=== PATIENT | male | born 1995 | race Caucasian/White ===

== ENCOUNTER 2020-01-14 18:12 | Emergency (ER) | payer OTHER, SELFPAY ==
--- NOTE | ~2020-01-14 | XR_ITS ---
XR finger 1st LT min 2V DATE: 01/14/2020 19:19 INDICATION: Smashing injury. Left thumb pain. TECHNIQUE: 3 views of first digit COMPARISON: None FINDINGS: The tuft of the distal phalanx a shattered, with multiple fracture fragments. Normal alignment at the thumb. No other fracture or any dislocation. IMPRESSION: Comminuted fracture of tuft of distal phalanx Reviewed, dictated and finalized at location A.
[2020-01-14 18:20] VITALS: BP 156/96; PULSE 67; RESP 16; TEMP 37; O2SAT 99
--- NOTE | 2020-01-14 18:40 | ED.UPPEXIN ---
HPI - Extremity Injury (Upper) General Chief Complaint: Extremity Injury, Upper Stated Complaint: smashed thumb Source: patient Mode of arrival: ambulatory Limitations: no limitations History of Present Illness HPI narrative: patient is a 24-year-old male who presents to the emergency department after injury to his thumb. Patient states that about 7:00 a.m. this morning hammer hit his thumb. he states it is throbbing at this time. He wrapped it up this morning and a Band-Aid however the thumb is quite dirty still has he does work in welding. He states there is also a splint at the top of his fingernail where it was bleeding as well, however this bleeding is stopped. Onset (ago): hour(s) ( Almost 12 hours ago) Place: home Severity: mild Context: direct blow ( he hit his thumb with a hammer) Related Data Allergies Allergy/AdvReac Type Severity Reaction Status Date / Time Penicillins Allergy Unknown Verified 01/14/20 18:25 Review of Systems Review of Systems: All systems reviewed & are unremarkable except as noted in HPI and below Musculoskeletal: Comments: thumb injury only PMFSH Social History Social History (Updated 01/14/20 @ 18:44 by Imelda Webb MD) Substance use: never Living arrangements: with family Occupation/Education: occupation Exam Const: General: no acute distress and alert Nutritional Appearance: well nourished Orientation/consciousness: patient oriented x3 HENMT: Head: normal to inspection Neck: Neck: normal visual inspection Chest: Chest palpation & inspection: normal inspection of the chest Resp: Effort & Inspection: normal respiratory effort Skin: Other: small 1 cm laceration does have some bleeding present, small subungual fungal hematoma which look like it has mostly drained through the opening in the superior aspect of the nail. Neuro: General: patient oriented x3 and moves all extremities Psych: Mental Status: mental status grossly normal Affect: normal affect Course Course Emergency Course: sutures place to approximate wound, still left loose for drainage Vital Signs Vital signs: Vital Signs Temperature 37.0 C 01/14/20 18:20 Pulse Rate 67 01/14/20 18:20 Respiratory Rate 16 01/14/20 18:20 Blood Pressure 156/96 H 01/14/20 18:20 Pulse Oximetry 99 01/14/20 18:20 Temperature 37.0 C 01/14/20 18:20 Pulse Rate 67 01/14/20 18:20 Respiratory Rate 16 01/14/20 18:20 Blood Pressure 156/96 H 01/14/20 18:20 Pulse Oximetry 99 01/14/20 18:20 Procedures Laceration Laceration 1: Date: 01/14/20 Time: 19:52 Site: hand Side (If applicable): left Size (cm): 2 Description: linear Depth: simple, single layer Local Anesthetic: lidocaine 1% Amount of anesthesia used (mL): 2 Pre-repair: wound explored ====== Skin Level ====== Skin layer closed with: nylon Size (cm): 4-0 Number of sutures: 2 Technique: simple, interrupted ====== Subcutaneous Layer ====== ====== Muscle Layer ====== ====== Tendon Layer ====== Dressing: metal foam splint Discharge Plan Discharge Clinical Impression: Closed fracture of tuft of distal phalanx of finger, Laceration Patient Disposition: Home, Self-Care Condition: Stable Instructions: Antibiotic Form, Care For Your Stitches (ED), Laceration (ED), Finger Fracture (ED) Prescriptions: New sulfamethoxazole-trimethoprim [Bactrim DS] 800-160 mg tablet 1 tablet PO Q12H Qty: 20 RF: 0 Follow-up/Referrals: Pooja Briceño MD [Primary Care Provider] - Time of Disposition: 19:56
[2020-01-14] MEDS: LIDOCAINE HCL 1% LOCAL INJ 20 ML VIAL (19:29)
--- NOTE | 2020-01-14 19:30 | PC.NURSE ---
PT IS UP TO DATE WITH TETANUS VACCINE. 2016. ERP AWARE.
[2020-01-14 20:04] VITALS: RESP 15; O2SAT 100
== END 2020-01-14 20:05 | disposition home or self-care (01) ==
PROVIDERS: Emergency Provider Emergency Medicine; PCP Internal Medicine
DX: S62.522A Displaced fracture of distal phalanx of left thumb, initial encounter for closed fracture (principal); W27.8XXA Contact with other nonpowered hand tool, initial encounter; S61.012A Laceration without foreign body of left thumb without damage to nail, initial encounter
CPT/HCPCS: 12001; 73140; 99283; 99284

== ENCOUNTER 2021-01-24 20:00 | Emergency (ER) | payer OTHER, SELFPAY ==
[2021-01-24 21:30] VITALS: BP 134/90; PULSE 98; RESP 18; TEMP 36.6; O2SAT 98
[2021-01-24] MEDS: LIDOCAINE HCL 2% PF INJ 5 ML VIAL 3 ML INFILTRATE (22:05)
[2021-01-24] MEDS: IBUPROFEN 400 MG TABLET 800 MG PO (22:18)
[2021-01-24] MEDS: TETANUS,DIPHTHERIA,AC PERTUSSIS ADULT 0.5 ML (ADACEL) IM (22:20)
--- NOTE | 2021-01-24 22:29 | ED.WOUNDLAC ---
HPI - Wound/Laceration General Chief Complaint: Wound/Laceration Stated Complaint: Right arm injury Time Seen by Provider: 01/24/21 20:30 Source: patient and RN notes reviewed Mode of arrival: ambulatory Limitations: no limitations History of Present Illness HPI narrative: 7 cm gaping linear laceration of medial right dital forearm, no acute bleeding. Onset (ago): hour(s) (1) Extremity Location: Right: forearm Place: home Patient tetanus UTD: No Context: accidental Associated symptoms: none Treatments prior to arrival: bandage Related Data Allergies Allergy/AdvReac Type Severity Reaction Status Date / Time Penicillins Allergy Unknown Verified 01/14/20 18:25 Review of Systems Review of Systems: All systems reviewed & are unremarkable except as noted in HPI and below Musculoskeletal: Musculoskeletal: Reports as per HPI (right forearm laceration.) [facility] Past Medical History Medical History Forearm laceration Social History Social History Substance use: never Exam Const: General: no acute distress and alert Orientation/consciousness: patient oriented x3 Limitations: no limitations HENMT: Head: normal to inspection Ears: external ears normal and TM's normal bilaterally General nose exam: Normal external nose present and Normal nares present Mouth: Yes lip normal and Yes moist mucous membranes Teeth and gingiva: dentition normal Eyes: Conjunctivae: conjunctivae normal Pupils: Equal, round and reactive pupils present EOM: EOMs intact bilaterally Neck: Neck: normal visual inspection and no lymphadenopathy Chest: Chest palpation & inspection: normal inspection of the chest Resp: Effort & Inspection: normal respiratory effort Auscultation: clear to auscultation bilaterally Cardio: Rate: regular rate Rhythm: regular rhythm GI: GI Palp: Yes Soft to palpation (no acute tenderness) Percussion: Yes normal to percussion Back/Spine/Pelvis: Back: no CVA tenderness Skin: General skin exam: normal color Rashes: no rashes Neuro: General: patient oriented x3, moves all extremities, no meningeal signs, no focal motor deficits and CN's II-XI intact bilaterally Extrem: Other: 7 cm linear gaping laceration og the medial right forearm. Psych: Appearance: grossly normal and well kempt Mental Status: mental status grossly normal Affect: normal affect Attitude: cooperative Thought content: Yes Normal thought content present Course Course Emergency Course: Pt was table and less pain-ful in the ED. the right forearm lac was repaired, pt for home. Reevaluation(s) Date: 01/24/21 Time: 21:46 Vital Signs Vital signs: Vital Signs Temperature 36.6 C 01/24/21 21:30 Pulse Rate 98 01/24/21 21:30 Respiratory Rate 18 01/24/21 21:30 Blood Pressure 134/90 01/24/21 21:30 Pulse Oximetry 98 01/24/21 21:30 Temperature 36.6 C 01/24/21 22:37 Pulse Rate 80 01/24/21 22:37 Respiratory Rate 20 01/24/21 22:37 Blood Pressure 130/88 01/24/21 22:37 Pulse Oximetry 94 01/24/21 22:37 Procedures Laceration right forearm laceration : Date: 01/24/21 Time: 22:03 Site: upper extremity Side (If applicable): right Size (cm): 7 Description: linear and clean Depth: simple, single layer Local Anesthetic: lidocaine 2% Amount of anesthesia used (mL): 4 Pre-repair: wound explored and irrigated extensively ====== Skin Level ====== Skin layer closed with: nylon Size (cm): 3-0 Number of sutures: 7 Technique: simple, interrupted ====== Subcutaneous Layer ====== ====== Muscle Layer ====== ====== Tendon Layer ====== Dressing: mild compression dressing applied . well tolerated MDM - Wound/Laceration Differential Diagnosis Differential diagnosis: Likely laceration, abrasion and
[2021-01-24 22:37] VITALS: BP 130/88; PULSE 80; RESP 20; TEMP 36.6; O2SAT 94
== END 2021-01-24 22:44 | disposition home or self-care (01) ==
PROVIDERS: Emergency Provider Emergency Medicine; PCP Internal Medicine
DX: S51.811A Laceration without foreign body of right forearm, initial encounter (principal); W45.8XXA Other foreign body or object entering through skin, initial encounter
CPT/HCPCS: 12002; 90471; 90715; 99283; A9270

== ENCOUNTER 2021-02-27 17:04 | Emergency (ER) | payer OTHER, SELFPAY ==
--- NOTE | ~2021-02-27 | XR_ITS ---
EXAMINATION: XR knee LT min 4V DATE: 02/27/2021 17:59 INDICATION: Left knee injury. TECHNIQUE: 5 views of left knee were obtained. COMPARISON: None. FINDINGS: Bone alignment is normal. No fracture. Joint spaces are well maintained. No knee joint effu adam. There is an infrapatellar laceration. There is high-density material in the area of the lacerat ion. IMPRESSION: 1. Infrapatellar laceration with tiny foreign bodies. Reviewed, dictated and finalized at location A.
--- NOTE | ~2021-02-27 | XR_ITS ---
EXAMINATION: XR ankle LT min 3V DATE: 02/27/2021 17:59 INDICATION: Left ankle pain. TECHNIQUE: 4 views of left ankle were obtained. COMPARISON: Left ankle radiographs 10/28/16 FINDINGS: There is a transverse fracture of medial malleolus in near-anatomic alignment. Joint spaces are normal. There is medial ankle soft tissue swelling. IMPRESSION: 1. Transverse fracture of medial malleolus. Reviewed, dictated and finalized at location A.
[2021-02-27 17:28] VITALS: BP 133/77; PULSE 94; RESP 20; TEMP 37.1; O2SAT 99
[2021-02-27] MEDS: cefTRIAXone 1 GM VIAL IM (18:01)
[2021-02-27] MEDS: KETOROLAC (*BKC) 60 MG/2 ML VIAL IM (18:02)
[2021-02-27] MEDS: LIDOCAINE HCL 1% LOCAL INJ 20 ML VIAL (18:02)
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
[2021-02-27 21:12] VITALS: BP 139/86; PULSE 81; RESP 20; TEMP 36.9; O2SAT 98
== END 2021-02-27 21:15 | disposition home or self-care (01) ==
PROVIDERS: Emergency Provider Emergency Medicine; PCP Internal Medicine
DX: S81.012A Laceration without foreign body, left knee, initial encounter (principal); S61.211A Laceration without foreign body of left index finger without damage to nail, initial encounter; W45.8XXA Other foreign body or object entering through skin, initial encounter
CPT/HCPCS: 12001; 73564; 73610; 96372; 99283; 99284; J0696; J1885

== ENCOUNTER 2021-03-22 08:34 | Outpatient (CLI) | payer OTHER, SELFPAY ==
--- NOTE | ~2021-03-22 | XR_ITS ---
EXAMINATION: XR ankle LT min 3V DATE: 03/22/2021 08:53 INDICATION: Left ankle fracture follow-up TECHNIQUE: Anteroposterior, lateral, mortise, and additional oblique view of the ankle were obtained. COMPARISON: 03/02/2021 FINDINGS: Again seen is a transverse fracture medial malleolus at the level of the tibial plafond whi ch is in near-anatomic alignment. A small amount of calcified callus has developed at the fracture si te. No additional osseous abnormality is identified. The soft tissues are unremarkable. IMPRESSION: 1. Transverse fracture of the medial malleolus with early healing. Reviewed, dictated and finalized at location B. R ENGRAVER
== END 2021-03-22 08:35 | disposition home or self-care (01) ==
LOC: CHSIMG 08:39
PROVIDERS: PCP Internal Medicine; Visit Provider Orthopaedic Surgery
DX: M25.572 Pain in left ankle and joints of left foot (principal)
CPT/HCPCS: 73610

== ENCOUNTER 2021-04-05 08:40 | Outpatient (CLI) | payer OTHER, SELFPAY ==
--- NOTE | ~2021-04-05 | XR_ITS ---
EXAMINATION: XR ankle LT min 3V DATE: 04/05/2021 09:06 INDICATION: Left ankle fracture. Follow-up. Stiffness. TECHNIQUE: 4 views of left ankle were obtained. COMPARISON: Left ankle radiographs 03/22/2021, 02/27/2021 FINDINGS: There is a transverse fracture of medial malleolus. The distal fracture fragment demonstrat es 3 mm anteromedial displacement. Periosteal reaction is noted. Joint spaces are normal. There is me dial ankle soft tissue swelling. IMPRESSION: 1. Stable healing transverse fracture of medial malleolus. Reviewed, dictated and finalized at location B. RIDGE MAKER
== END 2021-04-05 08:41 | disposition home or self-care (01) ==
LOC: CHSIMG 08:42
PROVIDERS: PCP Internal Medicine; Visit Provider Orthopaedic Surgery
DX: M25.572 Pain in left ankle and joints of left foot (principal)
CPT/HCPCS: 73610